=== PATIENT | female | born 1980 | race Caucasian/White ===

== ENCOUNTER 2025-07-24 07:18 | Day surgery (SDC) | payer BC, OTHER ==
[~2025-07-24 07:18] MED LIST: Midazolam 1 MG/ML 2 ML SDV ONE; Propofol 200 MG/20 ML SDV ONE; fentaNYL 50 MCG/ML SDV ONE
[2025-07-24] MEDS: Lactated Ringers 1,000 ML IV SCH (08:08)
[2025-07-24] MEDS ORDERED: Propofol 200 MG/20 ML SDV ONE (08:40)
== END 2025-07-24 10:42 | disposition home or self-care (01) ==
LOC: JP.SDS 07:18
PROVIDERS: ATTEND Surgery
DX: C20 Malignant neoplasm of rectum (principal); K22.89 Other specified disease of esophagus
CPT/HCPCS: 00813; 43239; 45380; 45381; 81025; J2250; J2704; J3010; J7120